=== PATIENT | female | born 1965 | race Caucasian/White ===

== ENCOUNTER → 2016-10-08 | Outpatient (REF) | LOC: ZLAB.WCH 13:17 | DX: Z01.89 Encounter for other specified special examinations (principal) ==

== ENCOUNTER → 2016-10-30 | Outpatient (CLI) | payer OTHER | LOC: COL.RAD 14:25 | DX: M75.31 Calcific tendinitis of right shoulder (principal) ==

== ENCOUNTER 2017-10-09 13:00 | Outpatient (RCR) | payer BC | END 2017-12-03 | disposition home or self-care (01) | LOC: MKS.ESL.OT | DX: G56.03 Carpal tunnel syndrome, bilateral upper limbs (principal); G56.23 Lesion of ulnar nerve, bilateral upper limbs ==

== ENCOUNTER → 2017-10-14 | Outpatient (CLI) | payer BC | LOC: MHCPAIN 11:10 | DX: G89.29 Other chronic pain (principal); M47.817 Spondylosis without myelopathy or radiculopathy, lumbosacral region; M53.3 Sacrococcygeal disorders, not elsewhere classified; G57.01 Lesion of sciatic nerve, right lower limb | CPT/HCPCS: G0463 ==

== ENCOUNTER 2020-07-04 06:38 | Day surgery (SDC) | payer BC ==
[2020-07-04] VITALS (9 sets, daily range): BP systolic 120–154; BP diastolic 74–95; PULSE 82–90; TEMP 98.4
[~2020-07-04] VITALS: Ht 155 cm; Wt 75.2 kg
[2020-07-04] MEDS ORDERED: GLUCOPHAGE XR500 M1 PO (08:25)
[2020-07-04] MEDS ORDERED: GLUCOTROL10 MG PO (08:26)
[2020-07-04] MEDS ORDERED: HYDRODIURIL50 MG PO (08:27)
[2020-07-04] MEDS ORDERED: VERAPAMIL120 MG/TA1 PO (08:28)
[2020-07-04] MEDS ORDERED: LEXAPRO 10MG10 MG PO (08:29)
[2020-07-04] MEDS ORDERED: SINGULAIR 110 MG/TAB PO (08:29)
[2020-07-04] MEDS ORDERED: LIORESAL 1010 MG/TAB PO (08:30)
[2020-07-04] MEDS ORDERED: VOLTAREN 75 DR75 MG PO (08:32)
[2020-07-04] MEDS ORDERED: NEURONTIN600 MG/TAB PO (08:32)
[2020-07-04] MEDS ORDERED: VENTOLIN0.09 MG IH (08:33)
[2020-07-04] MEDS ORDERED: RT ADVAIR 228 DISKUS IH (08:34)
[2020-07-04] MEDS ORDERED: DESYREL 100MG100 MG PO (08:35)
[2020-07-04] MEDS ORDERED: FIORICET 325 MG1 TA1 PO (08:35)
--- NOTE | 2020-07-04 08:57 | NUR ---
PATIENT PREMEDICATED PRIOR TO PROCEDURE DUE TO NOT BEING ABLE TO LAY FLAT THE PAST 3 MONTHS AND THIS PROCEUDRE REQUIRES PATIENT TO LAY PRONE/FLAT. DR HASSAN ORDERED 1 MG VERSED AND 50 MCG OF FENTANYL PRIOR TO PROCEDURE FOR PAIN CONTROL
--- NOTE | 2020-07-04 09:00 | NUR ---
IV fluids to be obtained per Сергей Kwok.
--- NOTE | 2020-07-04 09:00 | NUR ---
Patient to procedure.
--- NOTE | 2020-07-04 09:18 | NUR ---
SEE MEREGE FOR ALL MEDICATION ADMIN. TIMES, INTRA AND POST SEDATION ASSESSMENT
--- NOTE | 2020-07-04 13:27 | NUR ---
Discharge instruction s given to pt.pt verbalizes understanding.INT removed,catheter tip intact.Pt escorted out via wheelchair by this nurse.
== END 2020-07-04 14:59 | disposition home or self-care (01) ==
LOC: EUO 06:38 → COL.CAR 07:00 → EUO 14:59
DX: S22.080A Wedge compression fracture of T11-T12 vertebra, initial encounter for closed fracture (principal); Z88.6 Allergy status to analgesic agent
CPT/HCPCS: J2250; J3010

== ENCOUNTER 2021-04-17 21:16 | Observation (INO) | payer BC ==
[~2021-04-17] VITALS: Ht 154.9 cm; Wt 65.9 kg
[~2021-04-17 21:16] MED LIST: DESYREL 100MG100 MG PO; FIORICET 325 MG1 TA1 PO; GLUCOPHAGE XR500 M1 PO; GLUCOTROL10 MG PO; HYDRODIURIL50 MG PO; LEXAPRO 10MG10 MG PO; LIORESAL 1010 MG/TAB PO; NEURONTIN600 MG/TAB PO; RT ADVAIR 228 DISKUS IH; SINGULAIR 110 MG/TAB PO; VENTOLIN0.09 MG IH; VERAPAMIL120 MG/TA1 PO; VOLTAREN 75 DR75 MG PO
[2021-04-17 23:16] LABS: BASO % 0.1 % (0.0-2.0); GRAN # 11.4 (1.4-6.5); GRAN % 83.4 % (42.2-75.2); HEMOGLOBIN 10.7 g/dl (12.5-16.0); LYMPH # 1.6 (1.2-3.4); LYMPH % 11.4 % (20.0-51.0); MEAN CELL VOLUME 68 fl (80.0-100.0); MEAN CORPUSCULAR HEMOGLOBIN 22 pg (27.0-31.0); MEAN CORPUSCULAR HGB CONC 32 g/dl (33.0-37.0); MEAN PLATELET VOLUME 8.7 fl (7.4-10.4); MONO # 0.6 (0.1-0.6); MONO % 4.6 % (1.7-9.3); PLATELET COUNT 329 K/mm3 (130-400)
[2021-04-17 23:17] LABS: HEMATOCRIT 33.2 % (37.0-47.0)
[2021-04-17 23:30] LABS: ALBUMIN 4.4 gm/dL (3.5-5.0); BILIRUBIN,TOTAL 0.6 mg/dL (0.0-1.0); C-REACTIVE PROTEIN 3.7 mg/dL (0.0-0.9); CALCIUM 9.1 mg/dL (8.4-10.2); CREATININE, serum 0.5 (0.52-1.25); POTASSIUM 3.4 mmol/L (3.4-5.0); TOTAL PROTEIN 7.2 gm/dL (6.4-8.2)
[2021-04-18 00:25] LABS: COLLECTION METHOD CLEAN CATCH
[2021-04-18 00:31] LABS: PH 7 (5-8); SQUAMOUS EPITHELIAL 0-2 /hpf; URINE APPEARANCE Clear; URINE BACTERIA None Seen /hpf; URINE BILIRUBIN Negative (NEGATIVE); URINE BLOOD Negative (NEGATIVE); URINE COLOR Straw; URINE GLUCOSE Negative (NEGATIVE); URINE KETONE 1+ (NEGATIVE); URINE LEUKOCYTE ESTERASE Negative (NEGATIVE); URINE NITRATE Negative (NEGATIVE); URINE PROTEIN(semi-quant) Negative (NEGATIVE); URINE RBC None Seen /hpf; URINE UROBILINOGEN Negative (NEGATIVE)
[2021-04-18] MEDS ORDERED: LIPITOR 10MG10 MG PO (02:30)
[2021-04-18] MEDS ORDERED: NEXIUM 40MG40 MG PO (02:31)
[2021-04-18] MEDS ORDERED: ULTRAM 50MG TAB50 MG PO (02:32)
[2021-04-18 04:05] VITALS: BP 144/81; PULSE 92; TEMP 98.3
--- NOTE | 2021-04-18 05:47 | NUR ---
PT A/0X4, 02 ROOM AIR, VSS, PT REPORTS INTERMITTANT PAIN TO ABDOMEN AND ANUS 5/10. PT ALSO VERBALIZED SHE NOTED BLEEDING FROM HER ANUS AND STATES "THIS IS NOT NEW, IT IS MY HEMORHOIDS" THIS NURSE REVIEWED POC WITH PT AND EXPRESSED THE NEED FOR AN ENEMA, PT VERBALIZES UNDERSTANDING. PT EXPRESSES TO BEGIN ENEMA LATER IN THE MORNING AFTER SHE HAS RESTED FROM ADMISSION PROCESS. NURSE AND PT CONFIRM. PT EXPRESSES NO ADDITONAL NEEDS AT THIS TIME. ALL NEEDS MET. CALL LIGHT WITHIN REACH.
[2021-04-18 08:00] VITALS: BP 125/53; PULSE 85; TEMP 98.5
[2021-04-18 08:49] LABS: GRAN # 3.7 (1.4-6.5); GRAN % 64.8 % (42.2-75.2); LYMPH # 1.5 (1.2-3.4); LYMPH % 26.7 % (20.0-51.0); MEAN CELL VOLUME 70 fl (80.0-100.0); MEAN CORPUSCULAR HGB CONC 31 g/dl (33.0-37.0); MEAN PLATELET VOLUME 9.5 fl (7.4-10.4); MONO # 0.5 (0.1-0.6); MONO % 8.1 % (1.7-9.3); PLATELET COUNT 290 K/mm3 (130-400); RED BLOOD COUNT 4.34 M/mm3 (4.10-5.30); REDCELL DISTRIBUTION WIDTH-CV 19.9 % (11.5-14.5)
[2021-04-18 08:53] LABS: HEMATOCRIT 30.5 % (37.0-47.0); HEMOGLOBIN 9.4 g/dl (12.5-16.0); MEAN CORPUSCULAR HEMOGLOBIN 22 pg (27.0-31.0)
[2021-04-18 09:04] LABS: CALCIUM 7.9 mg/dL (8.4-10.2); CREATININE, serum 0.48 (0.52-1.25); POTASSIUM 3.1 mmol/L (3.4-5.0)
--- NOTE | 2021-04-18 09:36 | NUR ---
Initial visit; Patient thanked [employer] for stopping though states she has no immediate needs.
[2021-04-18 12:18] VITALS: BP 118/59; PULSE 77; TEMP 98.3
--- NOTE | 2021-04-18 13:07 | NUR ---
VALENTE met with the patient to discuss discharge plan. The patient lives in [place] with her daughter, Reshma (ph#[phone]). She reports independence with ADLs and does not have any DME. The patient's PCP is Dr. Neil Mcfarland and she receives her medications from [facility]. She reports no difficulties obtaining her meds at this time. The patient does not have a DPOA-HC, but she was interested in obtaining a form. VALENTE provided. The patient is and has two children: Reshma and Sneha. VALENTE informed her that her two children are her legal next of kin. The patient verbalized understanding. The patient plans to return home with her daughter upon discharge. No additional needs at this time. *Discharge plan: home with daughter*
[2021-04-18 16:40] VITALS: BP 116/59; PULSE 74; TEMP 98.4
[2021-04-18 17:29] LABS: CALCIUM 7.8 mg/dL (8.4-10.2); CREATININE, serum 0.45 (0.52-1.25); POTASSIUM 3.6 mmol/L (3.4-5.0)
--- NOTE | 2021-04-18 19:16 | NUR ---
Pt rested in bed through the day. Reported an intermittent headache and back pain. Reports she takes her Fioricet q2h at home. Pt had three small hard bowel movements today. No needs at this time. Call light within reach.
[2021-04-18 22:22] VITALS: BP 113/76; PULSE 63; TEMP 97.6
[2021-04-19] VITALS (7 sets, daily range): BP systolic 104–149; BP diastolic 50–71; PULSE 68–87; TEMP 97.4–98.7
--- NOTE | 2021-04-19 00:14 | NUR ---
PT RESTING IN BED. EVENING MEDICATIONS GIVEN. PT COMPLAINING OF SOME PAIN AT THIS TIME, REQUESTING A PAIN PILL. PT STATES THAT SHE HAS BEEN HAVING SMALL BMS ABOUT EVERY HOUR. DENIES ANY NEEDS AT THIS TIME. WILL CONTINUE TO MONITOR.
[2021-04-19 07:44] LABS: EOS % 0.2 % (0-4.0); GRAN # 2.6 (1.4-6.5); GRAN % 53.2 % (42.2-75.2); LYMPH # 1.8 (1.2-3.4); LYMPH % 36.2 % (20.0-51.0); MEAN CELL VOLUME 69 fl (80.0-100.0); MEAN CORPUSCULAR HGB CONC 32 g/dl (33.0-37.0); MEAN PLATELET VOLUME 9.3 fl (7.4-10.4); MONO # 0.5 (0.1-0.6); MONO % 10.2 % (1.7-9.3); PLATELET COUNT 273 K/mm3 (130-400); RED BLOOD COUNT 4.03 M/mm3 (4.10-5.30)
[2021-04-19 07:51] LABS: MAGNESIUM 1.2 mg/dL (1.6-2.3); POTASSIUM 3.3 mmol/L (3.4-5.0)
[2021-04-19 07:52] LABS: HEMATOCRIT 27.9 % (37.0-47.0); HEMOGLOBIN 8.8 g/dl (12.5-16.0); MEAN CORPUSCULAR HEMOGLOBIN 22 pg (27.0-31.0)
[2021-04-19] MEDS ORDERED: MIRALAX PA17 GM/Dose PO (09:13)
[2021-04-19 09:14] LABS: CALCIUM 7.7 mg/dL (8.4-10.2); CREATININE, serum 0.52 (0.52-1.25)
--- NOTE | 2021-04-19 14:33 | NUR ---
Primary nurse was assisted with [id number] patient care by [facility] jagruti Lugo and [facility] Sar[facility] MSN, RN
--- NOTE | 2021-04-19 17:46 | NUR ---
Pt. progressing w/ plan of care. Pt. reports her migraine and her back pain is in control. Pt. able to make her needs known and reports she has been voiding and moving her bowels throughout the day. Needs addressed, call light and belongings in reach. Pt. has a steady gait and has been independent in the room throughout the day.
--- NOTE | 2021-04-19 22:59 | NUR ---
PT RESTING IN BED. EVENING MEDICATIONS GIVEN. PT INFORMED THIS RN THAT SHE WAS FEELING SLIGHTLY DIZZY AND HAD TUNNEL VISION. BLOOD SUGAR OBTAINED AND WAS 295 WHICH IS VERY HIGH FOR THIS PT. INFORMED PT THAT THIS MIGHT BE WHY SHES NOT FEELING WELL. IV TO L AC WAS INFILTRATED WELL. THIS NURSE D/C THE IV AND MARIA INES NIÑO PLACED A NEW ONE IN HER R FOREARM. PT STATES SHE FEELS BETTER NOW, BUT IS WORRIED ABOUT HER NO FREE WATER DIET RESTRICTION DUE TO THE FEAR OF CONSUMING TOO MANY SUGARY DRINKS. WILL CONTINUE TO MONITOR.
[2021-04-20 03:15] VITALS: BP 148/74; PULSE 68; TEMP 97.7
[2021-04-20 07:28] LABS: GRAN # 1.9 (1.4-6.5); GRAN % 54.5 % (42.2-75.2); LYMPH # 1.2 (1.2-3.4); LYMPH % 35.6 % (20.0-51.0); MEAN CELL VOLUME 72 fl (80.0-100.0); MEAN CORPUSCULAR HGB CONC 30 g/dl (33.0-37.0); MEAN PLATELET VOLUME 9.5 fl (7.4-10.4); MONO # 0.3 (0.1-0.6); MONO % 9.6 % (1.7-9.3); PLATELET COUNT 277 K/mm3 (130-400); RED BLOOD COUNT 4.26 M/mm3 (4.10-5.30); REDCELL DISTRIBUTION WIDTH-CV 20.4 % (11.5-14.5)
[2021-04-20 07:36] LABS: HEMATOCRIT 30.7 % (37.0-47.0); HEMOGLOBIN 9.3 g/dl (12.5-16.0); MEAN CORPUSCULAR HEMOGLOBIN 22 pg (27.0-31.0)
[2021-04-20 07:40] LABS: CREATININE, serum 0.59 (0.52-1.25); MAGNESIUM 2.1 mg/dL (1.6-2.3); POTASSIUM 4.1 mmol/L (3.4-5.0)
[2021-04-20 09:30] VITALS: BP 153/75; PULSE 60; TEMP 97.7
--- NOTE | 2021-04-20 09:30 | NUR ---
PT PLEASANT, AOX4, DENIES CHEST PAIN, REPORTS MIGRAINE COMING ON SO PRN MEDICATION PROVIDED WITH MORNING MEDS. ASSESSMENT PERFORMED, CALL LIGHT WITHIN REACH, BREAKFAST BROUGHT IN, NO OHTER NEEDS
[2021-04-20 11:19] VITALS: BP 113/66; PULSE 77; TEMP 98.1
[2021-04-20 11:20] VITALS: BP 132/71; PULSE 81; TEMP 98.1
[2021-04-20 11:22] VITALS: BP 138/70; PULSE 78; TEMP 98.1
--- NOTE | 2021-04-20 14:00 | NUR ---
PT ESCORTED OUT VIA WHEELCHAIR
--- NOTE | 2021-04-20 15:00 | NUR ---
DISCHARGE EDUCATION PROVIDED, IV IN RFA REMOVED, PT GATHERING BELONGINGS AND CALLED RIDE. NO OTHER NEEDS
[2021-05-06] MEDS ORDERED: PREDNISONE10 MG PO (17:43)
== END 2021-04-20 14:30 | disposition home or self-care (01) ==
LOC: COL.ER 21:16 → MEDICAL 04-18 01:54
PROVIDERS: Emergency Medicine; Nurse Practitioner Family; Physician Assistant
DX: K59.00 Constipation, unspecified (principal); E87.1 Hypo-osmolality and hyponatremia; D72.829 Elevated white blood cell count, unspecified; D50.9 Iron deficiency anemia, unspecified; E87.6 Hypokalemia; E83.42 Hypomagnesemia; E11.9 Type 2 diabetes mellitus without complications; E78.5 Hyperlipidemia, unspecified; J45.909 Unspecified asthma, uncomplicated; Z79.899 Other long term (current) drug therapy; Z79.84 Long term (current) use of oral hypoglycemic drugs
CPT/HCPCS: 99223-AI; 99239; G0378; J1650; J1815; J2060; J2405; J2550; J3475; J7030; Q9967

== ENCOUNTER 2021-05-13 17:00 | Outpatient (RCR) | payer BC ==
[2021-04-30 18:21] VITALS: BP 166/82; PULSE 72; TEMP 99.2
--- NOTE | 2021-04-30 19:17 | NUR ---
Pt tolerated her first infusion. No side effects at this time. Pt discharged via ambulation to private vehicle.
[2021-05-03 11:00] VITALS: BP 138/83; PULSE 75; TEMP 98.6
[2021-05-06 17:33] VITALS: BP 156/68; PULSE 84; TEMP 99.3
[2021-05-09 17:43] VITALS: BP 149/75; PULSE 82; TEMP 99
[~2021-05-13] VITALS: Ht 154.9 cm; Wt 67.4 kg
[~2021-05-13 17:00] MED LIST changes: +LIPITOR 10MG10 MG PO; +MIRALAX PA17 GM/Dose PO; +NEXIUM 40MG40 MG PO; +PREDNISONE10 MG PO; +ULTRAM 50MG TAB50 MG PO
[2021-05-13 18:19] VITALS: BP 156/80; PULSE 77; TEMP 98.3
== END 2021-05-13 19:19 | disposition home or self-care (01) ==
LOC: EUO 17:00
DX: E61.1 Iron deficiency (principal)
CPT/HCPCS: J1756

== ENCOUNTER 2022-03-07 12:45 | Outpatient (RCR) | payer BC | END 2022-03-09 | disposition home or self-care (01) | LOC: MKS.ESL.PT | DX: M54.50 Low back pain, unspecified (principal) | CPT/HCPCS: G0283-GP ==

== ENCOUNTER 2022-03-31 09:30 | Outpatient (RCR) | payer BC | END 2022-04-09 | disposition home or self-care (01) | LOC: MKS.ESL.PT | DX: M54.50 Low back pain, unspecified (principal) ==